=== PATIENT | female | born 1965 | race African-American/Black ===

== ENCOUNTER 2023-12-17 06:38 | Emergency (ER) | payer MEDICAID, OTHER ==
[~2023-12-17] VITALS: Ht 167.6 cm; Wt 118.2 kg
[2023-12-17 06:47] VITALS: TEMP 98.8
[2023-12-17 08:00] LABS: BASOPHILS % (AUTO) 0.7 % (0.0-2.0); EOSINOPHILS % (AUTO) 4.7 % (1.0-6.0); HEMATOCRIT 40.3 % (36-46); HEMOGLOBIN 13.3 g/dL (12.0-16.0); LYMPHOCYTES # (AUTO) 1.5 K/uL (1.0-4.8); LYMPHOCYTES % (AUTO) 46.9 % (22.0-44.0); MEAN CORPUSCULAR HEMOGLOBIN 28.4 pg (26.0-34.0); MEAN CORPUSCULAR HGB CONC 32.9 G/dL (31.0-37.0); MEAN CORPUSCULAR VOLUME 86 fL (80-100); MONOCYTES # (AUTO) 0.4 K/uL (0.1-1.0); MONOCYTES % (AUTO) 10.7 % (2.0-9.0); NEUTROPHILS # (AUTO) 1.2 K/uL (1.8-7.7); PLATELET COUNT (AUTO) 256 K/uL (150-450); RED BLOOD CELL COUNT(AUTO) 4.67 MIL/uL (4.00-5.20); RED CELL DISTRIBUTION WIDTH 13.9 % (11.5-14.5); WHITE BLOOD COUNT (AUTO) 3.3 K/uL (4.5-11.0)
[2023-12-17 08:01] LABS: RBC MORPHOLOGY COMMENT NORMAL RBC MORPH
[2023-12-17 08:09] LABS: CREATININE 1.19 mg/dL (0.60-1.30); POTASSIUM 4.1 mmol/L (3.5-5.1)
[2023-12-17] MEDS: METHOCARBAMOL 500 MG TABLET PO ONE (08:33)
[2023-12-17] MEDS: HYDROmorphone HCL 2 MG/ML SYRINGE IM ONE (08:34)
[2023-12-17] MEDS: ONDANSETRON HCL 4 MG/2 ML VIAL IM ONE (08:36)
[2023-12-17] MEDS ORDERED: HYDR-4072 PO (11:36)
[2023-12-17] MEDS ORDERED: METH-659 PO (11:36)
[2023-12-17] MEDS ORDERED: IBUP-1554 PO (11:36)
[2023-12-17 11:56] VITALS: BP 130/75; PULSE 68; RESP 17; O2SAT 98
== END 2023-12-17 11:57 | disposition home or self-care (01) ==
LOC: EMS 06:44
DX: S76.011A Strain of muscle, fascia and tendon of right hip, initial encounter (principal); M54.50 Low back pain, unspecified; K57.90 Diverticulosis of intestine, part unspecified, without perforation or abscess without bleeding; Z88.8 Allergy status to other drugs, medicaments and biological substances; X58.XXXA Exposure to other specified factors, initial encounter; Y93.89 Activity, other specified; Y92.89 Other specified places as the place of occurrence of the external cause; Y99.8 Other external cause status
CPT/HCPCS: 99285; 74176; 80048; 84703; 85025; 36415; 72220; 96372; J1171; J2405; 96374; 96375